=== PATIENT | female | born 1990 ===

== ENCOUNTER 2016-09-16 02:04 | Emergency (ER) | payer BC ==
[~2016-09-16] VITALS: Ht 160 cm; Wt 108.5 kg
[2016-09-16 02:08] VITALS: BP 140/90; PULSE 87; TEMP 36.9; O2SAT 98; Ht 160 cm; Wt 108.5 kg
[2016-09-16] MEDS ORDERED: PHENAZOPYRIDINE HCL 200 MG TAB PO STA (02:27)
[2016-09-16] MEDS ORDERED: NITROFURANTOIN MONOHYDRATE 100 MG CAP PO ONE (02:30)
[2016-09-16] MEDS ORDERED: NITR1CAP16 PO (02:32)
[2016-09-16] MEDS ORDERED: PHEN-775 PO (02:32)
--- NOTE | 2016-09-16 02:35 | EMERGENCY ROOM VISIT NOTE ---
History Report prepared by Moniiblartell: Muriel Medina Under the Supervision of: Dr. Fani Mccallum D.O. First contact with patient: 02:12 Chief Complaint: URINARY SYMPTOMS Stated Complaint: PAINFUL URINATING,BLOOD IN URINE Nursing Triage Summary: Patient notes burning when she urinates, urinary frequency and some blood in urine. Patient states that she has a hx of UTIs and kidney infections, states that symptoms are the same. History of Present Illness The patient is a 26 year old female who presents to the Emergency Room with complaints of persistent urinary symptoms for the past 2 to 3 days. She states at first she experienced increased urinary frequency and minor dysuria. Today she started experiencing hematuria and worsening dysuria, so she came to the ED. She rates her pain as a 7/10 in severity. She notes she does have a history of UTI's and kidney infections but has not experienced one in approximately 1 year. Her current symptoms are similar to her typical UTI. Her last menstrual period was approximately 3 weeks ago and normal. She denies any recent fevers, cough, sore throat, nausea or vomiting. 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 A total of 10 systems reviewed and were otherwise negative. Past Medical & Surgical Medical Problems: (1) Kidney infection (2) UTI (urinary tract infection) Social History Smoking Status: Current Every Day Smoker Alcohol Use: occasionally Drug Use: none Marital Status: single Housing Status: lives with family Occupation Status: employed Current/Historical Medications Scheduled Nitrofurantoin Monohyd Macro (Macrobid), 100 MG PO BID Phenazopyridine Hcl (Pyridium), 1 TAB PO TID Allergies Coded Allergies: No Known Allergies (Unverified , 09/16/16) Physical Exam Vital Signs Date Time Temp Pulse Resp B/P (MAP) Pulse Ox O2 Delivery O2 Flow Rate FiO2 09/16/16 02:08 36.9 87 19 140/90 98 Room Air Physical Exam HEENT: Head - normocephalic and atraumatic Pupils are equal, round, and reactive to light. Extraocular eye muscles are intact, and sclera are anicteric. Nose - moist nasal mucosa without discharge. Mouth - moist buccal mucosa. Oropharynx is nonerythematous and there is no tonsillar exudate or edema noted. Neck: Supple; no JVD, nuchal rigidity, cervical lymphadenopathy. Heart: Regular rate and rhythm. There is a normal S1 and S2 with no murmurs, clicks, or gallops appreciated. Lungs: Clear to auscultation bilaterally with no wheezes, rales, or rhonchi. Abdomen: Soft, mild tenderness in middle and LLQ of abdomen, nondistended, with good bowel sounds. There are no palpable pulsatile masses or hepatosplenomegaly. There is no guarding, rigidity, or rebound noted. Extremities: No evidence of cyanosis, clubbing, or edema. There are easily palpable peripheral pulses. Skin: warm and dry with good turgor and no rashes. Medical Decision & Procedures Medications Administered Medications (Trade) Dose Ordered Sig/Barbara Route Start Time Stop Time Status Last Admin Dose Admin Phenazopyridine HCl (Pyridium Tab) 200 mg NOW STAT PO 09/16/16 02:27 09/16/16 02:29 DC 09/16/16 02:36 200 MG Nitrofurantoin Macrocrystals (Macrobid Cap) 100 mg ONE ONCE PO 09/16/16 02:30 09/16/16 02:31 DC 09/16/16 02:36 100 MG Procedure Pyridium PO, Macrobid PO. ED Course 0223: Past medical records reviewed. The patient was evaluated in room B8. A complete history and physical exam was performed. A urine specimen was obtained. 0227: Pyridium 200 mg PO. 0228: I reviewed the patients urine and tests. Her urine dip looks significantly infected and her test is negative. 0230: Macrobid 100 mg PO. The urine was sent for culture. 0240: I reevaluated the patient. She is feeling well. I discussed her results and discharge instructions and she verbalized complete understanding and agreement. Medical Decision I attest that I have personally reviewed the patient's current medication list and she takes no daily medications. Patient was found to have a slightly elevated blood pressure on screening but this is considered circumstantial because of her pain and does not require follow-up. The patient is a 26 year old female who presents to the ED with urinary symptoms. Differential diagnosis includes: UTI, cystitis, pyelonephritis and dehydration. Urine dip reveals evidence of a UTI. Her symptoms seem consistent with UTI. She will be treated with Pyridium and Macrobid. Impression Primary Impression: Urinary tract infection Scribe Attestation The scribe's documentation has been prepared under my direction and personally reviewed by me in its entirety. I confirm that the note above accurately reflects all work, treatment, procedures, and medical decision making performed by me. Departure Information Dispostion Home / Self-Care Prescriptions Nitrofurantoin Monohyd Macro (MACROBID) 100 Mg Cap 100 MG PO BID, #10 CAP Prov: Fani Mccallum D.O. 09/16/16 Phenazopyridine Hcl (PYRIDIUM) 200 Mg Tab 1 TAB PO TID for 2 Days, #6 TAB Prov: Fani Mccallum D.O. 09/16/16 Referrals Johnathan Dacosta M.D. ([facility] ([facility]) Patient Instructions ED UTI Cystitis Female, My [facility] Additional Instructions Rest. Take plenty of clear liquids Pyridium - 1 tab. every 8 hours for 2 days Macrobid - 1 tab. every 12 hours for 5 days
== END 2016-09-16 02:40 | disposition home or self-care (01) ==
LOC: C.EDB 02:06
DX: N39.0 Urinary tract infection, site not specified (principal); Z87.440 Personal history of urinary (tract) infections; F17.210 Nicotine dependence, cigarettes, uncomplicated

== ENCOUNTER → 2017-06-03 | Outpatient (CLI) | payer BC | END | disposition home or self-care (01) | LOC: C.LABSPEC 17:56 | PROVIDERS: ATTEND Family Medicine | DX: Z30.9 Encounter for contraceptive management, unspecified (principal) ==